=== PATIENT | male | born 1965 | race Caucasian/White ===

== ENCOUNTER → 2021-08-17 | Outpatient (CLI) | payer OTHER | LOC: RAD 14:47 | DX: S92.912A Unspecified fracture of left toe(s), initial encounter for closed fracture (principal) ==

== ENCOUNTER → 2021-08-22 | Outpatient (CLI) | payer OTHER | LOC: RAD 09:37 | DX: S92.402A Displaced unspecified fracture of left great toe, initial encounter for closed fracture (principal) ==

== ENCOUNTER → 2021-12-07 | Outpatient (CLI) | payer BC ==
[~2021-12-07] VITALS: Ht 172.7 cm; Wt 111.4 kg
[2021-12-07 09:25] VITALS: BP 152/95
[2021-12-07 09:28] LABS: ALBUMIN 4.1 g/dL (3.5-5.0); POTASSIUM 4.4 mmol/L (3.5-5.1)
[2021-12-07 09:29] LABS: CALCIUM 9.4 mg/dL (8.3-10.5)
[2021-12-07 09:31] LABS: TOTAL PROTEIN 7.1 g/dL (6.4-8.3)
[2021-12-07 09:32] LABS: TOTAL BILIRUBIN 0.4 mg/dL (0.2-1.2)
== END ==
LOC: LAB 09:04
PROVIDERS: Family Medicine
DX: Z00.00 Encounter for general adult medical examination without abnormal findings (principal); Z13.220 Encounter for screening for lipoid disorders; Z13.1 Encounter for screening for diabetes mellitus; Z13.6 Encounter for screening for cardiovascular disorders; Z12.5 Encounter for screening for malignant neoplasm of prostate

== ENCOUNTER 2022-01-25 08:00 | Outpatient (RCR) | payer OTHER, BC | END 2022-01-28 | disposition still patient (30) | LOC: PT | DX: M25.552 Pain in left hip (principal) ==

== ENCOUNTER 2022-02-01 08:00 | Outpatient (RCR) | payer BC | END 2022-02-27 17:00 | disposition still patient (30) | LOC: PT 08:00 | DX: M25.552 Pain in left hip (principal) ==

== ENCOUNTER → 2022-05-07 | Outpatient (CLI) | payer BC | LOC: RAD 17:55 | DX: M19.071 Primary osteoarthritis, right ankle and foot (principal) ==

== ENCOUNTER 2022-05-22 10:10 | Emergency (ER) | payer BC ==
[~2022-05-22] VITALS: Ht 175.3 cm; Wt 122.0 kg
[2022-05-22] MEDS ORDERED: DESYREL 100MG100 MG PO (11:00)
[2022-05-22] MEDS ORDERED: PROPRANOLOL HCL40 M2 PO (11:01)
[2022-05-22] MEDS ORDERED: PAROXETINE HYDR40 MG PO (11:02)
[2022-05-22] MEDS ORDERED: TRAMADOL 50 MG TAB PO (11:02)
[2022-05-22] MEDS ORDERED: SUMATRIPTAN SUC50 M1 PO (11:02)
[2022-05-22 11:31] LABS: HEMATOCRIT 40.9 % (42.0-52.0); HEMOGLOBIN 13.6 g/dL (13.5-18.0); MEAN CELL VOLUME 87 fl (78-100); MEAN CORPUSCULAR HEMOGLOBIN 29 pg (27-31); MEAN CORPUSCULAR HGB CONC 33 g/dL (33-37); PLATELET COUNT 241 K/mm3 (130-400); RED BLOOD COUNT 4.69 M/mm3 (4.20-5.60); RED CELL DISTRIBUTION WIDTH 12.7 % (11.5-14.5); WHITE BLOOD COUNT 15.5 K/mm3 (4.8-10.8)
[2022-05-22 11:45] LABS: ALBUMIN 3.9 g/dL (3.5-5.0)
[2022-05-22 11:46] LABS: POTASSIUM 4.8 mmol/L (3.5-5.1)
[2022-05-22 11:47] LABS: CALCIUM 9.3 mg/dL (8.3-10.5)
[2022-05-22 11:48] LABS: TOTAL PROTEIN 6.3 g/dL (6.4-8.3)
[2022-05-22 11:50] LABS: TOTAL BILIRUBIN 0.3 mg/dL (0.2-1.2)
[2022-05-22 12:31] VITALS: BP 141/85
[2022-05-22 13:10] LABS: LYMPHOCYTE 65 % (20-51); MONOCYTE 7 % (3-10); NEUTROPHILS 28 % (42-75)
== END 2022-05-22 12:31 | disposition home or self-care (01) ==
LOC: ED 10:10
PROVIDERS: Physician Assistant
DX: R07.89 Other chest pain (principal); D72.829 Elevated white blood cell count, unspecified; Z86.16 Personal history of COVID-19; Z28.310 Unvaccinated for COVID-19

== ENCOUNTER → 2024-01-09 | Outpatient (CLI) | payer MEDICAID ==
[~2024-01-09] MED LIST: DESYREL 100MG100 MG PO; PAROXETINE HYDR40 MG PO; PROPRANOLOL HCL40 M2 PO; SUMATRIPTAN SUC50 M1 PO; TRAMADOL 50 MG TAB PO
== END ==
LOC: RAD 11:10
DX: M19.041 Primary osteoarthritis, right hand (principal)

== ENCOUNTER → 2024-02-19 | Outpatient (CLI) | payer MEDICAID ==
[2024-02-19 10:11] LABS: HEMATOCRIT 42.6 % (42.0-52.0); HEMOGLOBIN 13.8 g/dL (13.5-18.0); MEAN CELL VOLUME 89 fl (78-100); MEAN CORPUSCULAR HEMOGLOBIN 29 pg (27-31); MEAN CORPUSCULAR HGB CONC 32 g/dL (33-37); MEAN PLATELET VOLUME 9.4 fl (7.4-10.4); PLATELET COUNT 226 K/mm3 (130-400); RED BLOOD COUNT 4.78 M/mm3 (4.20-5.60); RED CELL DISTRIBUTION WIDTH 13.5 % (11.5-14.5); WHITE BLOOD COUNT 19.1 K/mm3 (4.8-10.8)
[2024-02-19 11:37] LABS: NEUTROPHILS 20 % (42-75)
[2024-02-19 11:38] LABS: MONOCYTE 6 % (3-10)
[2024-02-19 11:43] LABS: LYMPHOCYTE 74 % (20-51)
== END ==
LOC: LAB 08:52
PROVIDERS: Family Medicine
DX: D72.829 Elevated white blood cell count, unspecified (principal)

== ENCOUNTER → 2024-06-07 | Outpatient (CLI) | payer MEDICAID ==
[2024-06-07 09:54] LABS: HEMATOCRIT 44.3 % (42.0-52.0); HEMOGLOBIN 14.1 g/dL (13.5-18.0); MEAN CELL VOLUME 90 fl (78-100); MEAN CORPUSCULAR HEMOGLOBIN 29 pg (27-31); MEAN CORPUSCULAR HGB CONC 32 g/dL (33-37); PLATELET COUNT 215 K/mm3 (130-400); RED BLOOD COUNT 4.94 M/mm3 (4.20-5.60); RED CELL DISTRIBUTION WIDTH 13.6 % (11.5-14.5); WHITE BLOOD COUNT 19.9 K/mm3 (4.8-10.8)
[2024-06-07 10:00] LABS: ALBUMIN 4.1 g/dL (3.5-5.0)
[2024-06-07 10:02] LABS: CALCIUM 9.5 mg/dL (8.3-10.5)
[2024-06-07 10:03] LABS: TOTAL PROTEIN 6.5 g/dL (6.4-8.3)
[2024-06-07 10:05] LABS: TOTAL BILIRUBIN 0.3 mg/dL (0.2-1.2)
[2024-06-07 10:15] LABS: NEUTROPHILS 17 % (42-75)
[2024-06-07 10:16] LABS: MONOCYTE 3 % (3-10)
[2024-06-07 10:17] LABS: LYMPHOCYTE 79 % (20-51)
== END ==
LOC: LAB 09:28
PROVIDERS: Internal Medicine
DX: C91.10 Chronic lymphocytic leukemia of B-cell type not having achieved remission (principal)

== ENCOUNTER → 2024-06-11 | Outpatient (CLI) | payer MEDICAID ==
[~2024-06-11] MED LIST changes: +Iohexol 300 - 100 ML VIAL IV ONE
== END ==
LOC: RAD 08:05
DX: C91.10 Chronic lymphocytic leukemia of B-cell type not having achieved remission (principal); K76.0 Fatty (change of) liver, not elsewhere classified; R16.0 Hepatomegaly, not elsewhere classified; R59.0 Localized enlarged lymph nodes
CPT/HCPCS: Q9967

== ENCOUNTER → 2024-09-15 | Outpatient (CLI) | payer MEDICAID ==
[~2024-09-15] MED LIST changes: -Iohexol 300 - 100 ML VIAL IV ONE
[2024-09-15 12:32] LABS: HEMATOCRIT 45.6 % (42.0-52.0); HEMOGLOBIN 14.3 g/dL (13.5-18.0); MEAN CELL VOLUME 92 fl (78-100); MEAN CORPUSCULAR HEMOGLOBIN 29 pg (27-31); MEAN CORPUSCULAR HGB CONC 31 g/dL (33-37); MEAN PLATELET VOLUME 9.1 fl (7.4-10.4); PLATELET COUNT 235 K/mm3 (130-400); RED BLOOD COUNT 4.96 M/mm3 (4.20-5.60); RED CELL DISTRIBUTION WIDTH 13.9 % (11.5-14.5)
[2024-09-15 12:41] LABS: ALBUMIN 4.1 g/dL (3.5-5.0)
[2024-09-15 12:42] LABS: CALCIUM 9.6 mg/dL (8.3-10.5)
[2024-09-15 12:43] LABS: TOTAL PROTEIN 6.8 g/dL (6.4-8.3)
[2024-09-15 12:45] LABS: TOTAL BILIRUBIN 0.4 mg/dL (0.2-1.2)
[2024-09-15 12:53] LABS: BAND 1 % (0-10); NEUTROPHILS 17 % (42-75); WHITE BLOOD COUNT 21.5 K/mm3 (4.8-10.8)
[2024-09-15 12:54] LABS: MONOCYTE 3 % (3-10)
[2024-09-15 12:55] LABS: LYMPHOCYTE 78 % (20-51)
[2024-09-15 12:56] LABS: NUCLEATED RED BLOOD CELL 1 (0-6)
== END ==
LOC: LAB 12:05
PROVIDERS: Internal Medicine
DX: C91.10 Chronic lymphocytic leukemia of B-cell type not having achieved remission (principal)

== ENCOUNTER → 2024-12-17 | Outpatient (CLI) | payer MEDICAID ==
[~2024-12-17] MED LIST changes: +Iohexol 300 - 100 ML VIAL IV ONE; +NS 100 ML IV ONE
[2024-12-17 10:04] LABS: HEMATOCRIT 44.6 % (42.0-52.0); MEAN CELL VOLUME 91 fl (78-100); MEAN CORPUSCULAR HEMOGLOBIN 29 pg (27-31); MEAN CORPUSCULAR HGB CONC 31 g/dL (33-37); MEAN PLATELET VOLUME 9.3 fl (7.4-10.4); PLATELET COUNT 232 K/mm3 (130-400); RED BLOOD COUNT 4.89 M/mm3 (4.20-5.60); RED CELL DISTRIBUTION WIDTH 14.3 % (11.5-14.5)
[2024-12-17 10:08] LABS: ALBUMIN 4.1 g/dL (3.5-5.0)
[2024-12-17 10:10] LABS: CALCIUM 9.4 mg/dL (8.3-10.5)
[2024-12-17 10:11] LABS: TOTAL PROTEIN 6.7 g/dL (6.4-8.3)
[2024-12-17 10:13] LABS: TOTAL BILIRUBIN 0.4 mg/dL (0.2-1.2)
[2024-12-17 10:49] LABS: WHITE BLOOD COUNT 21.7 K/mm3 (4.8-10.8)
[2024-12-17 11:12] LABS: NEUTROPHILS 20 % (42-75)
[2024-12-17 11:13] LABS: LYMPHOCYTE 78 % (20-51)
== END ==
LOC: RAD 09:00 → LAB 09:23
PROVIDERS: Internal Medicine
DX: R91.8 Other nonspecific abnormal finding of lung field (principal); C91.10 Chronic lymphocytic leukemia of B-cell type not having achieved remission; Z72.0 Tobacco use
CPT/HCPCS: Q9967

== ENCOUNTER → 2024-12-29 | Outpatient (CLI) | payer MEDICAID ==
[~2024-12-29] MED LIST changes: -Iohexol 300 - 100 ML VIAL IV ONE; -NS 100 ML IV ONE
[2024-12-29 09:21] LABS: CALCIUM 9.5 mg/dL (8.3-10.5)
[2024-12-29 09:28] LABS: MAGNESIUM 1.94 mg/dL (1.60-2.60)
== END ==
LOC: LAB 08:56
PROVIDERS: Family Medicine
DX: R25.2 Cramp and spasm (principal)